=== PATIENT | female | born 1995 | race Caucasian/White ===

== ENCOUNTER 2019-05-12 14:52 | Emergency (ER) | payer BC ==
[2019-05-12 15:08] LABS: ABS Basophils 0.1 10^3/ul (0-0.2); ABS Eosinophils 0.1 10^3/ul (0-0.6); ABS Lymphocytes 1.2 10^3/ul (1.0-4.8); ABS Monocytes 0.5 10^3/ul (0-0.8); ABS Neutrophils 4.3 10^3/ul (1.5-7.7); Eosinophil % 1.8 %; Hematocrit 43 % (35-47); Hemoglobin 14.5 g/dL (12.0-16.0); Lymphocyte % 18.9 %; Mean Corpuscular HGB Conc 34 g/dL (31-36); Mean Corpuscular Hemoglobin 29 pg (27-31); Mean Corpuscular Volume 86 fL (80-97); Mean Platelet Volume 8.7 fL (7.4-10.4); Nucleated Red Blood Cells % 0.1; Platelet Count 216 10^3/uL (150-450); Red Blood Count 5.03 10^6 /uL (3.70-4.87); Red Cell Distribution Width 13 % (10-15); White Blood Count 6.2 10^3/uL (3.5-10.8)
[2019-05-12 15:21] LABS: INR 1.14 (0.82-1.09)
[2019-05-12 15:25] LABS: Albumin 4.4 g/dL (3.2-5.2); Anion Gap 8 mmol/L (2-11); CO2 Carbon Dioxide 23 mmol/L (22-32); Calcium 9.3 mg/dL (8.6-10.3); Chloride 107 mmol/L (101-111); Magnesium 2.1 mg/dL (1.9-2.7); Potassium 3.5 mmol/L (3.5-5.0); Sodium 138 mmol/L (135-145)
[2019-05-12 15:31] LABS: ALT 12 U/L (7-52); AST 17 U/L (13-39); Albumin/Globulin Ratio 1.3 (1-3); Alkaline Phosphatase 64 U/L (34-104); BUN/Creatinine Ratio 11.8 (8-20); Blood Urea Nitrogen 10 mg/dL (6-24); EGFR African American 100.3 (>60); EGFR Non-African American 82.9 (>60); Globulin 3.3 g/dL (2-4); Glucose 102 mg/dL (70-100); Total Protein 7.7 g/dL (6.4-8.9)
--- NOTE | 2019-05-12 15:37 | ED ---
Complex/Multi-Sys Presentation - HPI Summary HPI Summary: 23-year-old female with no significant past medical history presents to the emergency department complaining of upper respiratory symptoms, fever, ear "hotness", nasal congestion, sore throat, lightheadedness and fatigue for 2 weeks. She states she was recently seen by her primary care provider last week who gave her a Z-Randolph as she thought she had pneumonia. Today she is complaining of continued symptoms as well as multiple bouts of diarrhea and chest discomfort. She denies recent recreational drug use, alcohol use, smoking. She denies cough, vomiting, pain with urination, muscle pain, recent tick bite. - History Of Current Complaint Chief Complaint: EDShortnessOfBreath Time Seen by Provider: 05/12/19 15:05 Hx Obtained From: Patient, Family/Slip Cover Cutter - Father in the room Onset/Duration: Gradual Onset, Lasting Weeks Timing: Constant Severity Currently: Moderate Severity Initially: Moderate Associated Signs And Symptoms: Positive: Weakness, Nausea, Diarrhea, Abdominal Pain, Fever. Negative: Cough, Vomiting, Dysuria, Diaphoresis, Immunocompromised , Anticoagulation Therapy - Allergies/Home Medications Allergies/Adverse Reactions: Allergies Allergy/AdvReac Type Severity Reaction Status Date / Time No Known Allergies Allergy Verified 05/12/19 15:00 PMH/Surg Hx/FS Hx/Imm Hx History: Denies: Hx Acute Renal Failure, Hx Chronic Renal Failure, Hx Dialysis Infectious Disease History: No Infectious Disease History: Denies: Traveled Outside the [place] in Last 30 Days Review of Systems Positive: Fever, Fatigue Eyes: Negative Positive: Sore Throat, Ear Ache. Negative: Epistaxis, Nasal Discharge Cardiovascular: Negative Positive: Shortness Of Breath. Negative: Cough Positive: Abdominal Pain, Diarrhea, Nausea. Negative: Vomiting Genitourinary: Negative Musculoskeletal: Negative Skin: Negative Positive: Weakness Psychological: Normal All Other Systems Reviewed And Are Negative: Yes Physical Exam Triage Information Reviewed: Yes Vital Signs On Initial Exam: Initial Vitals Temp Pulse Resp BP Pulse Ox 99.6 F 90 16 133/70 100 05/12/19 14:54 05/12/19 14:54 05/12/19 14:54 05/12/19 14:54 05/12/19 14:54 Vital Signs Reviewed: Yes Appearance: Positive: Well-Appearing, No Pain Distress, Well-Nourished Skin: Positive: Warm Head/Face: Positive: Normal Head/Face Inspection Eyes: Positive: EOMI, WING ENT: Positive: Hearing grossly normal, Pharynx normal, Nasal congestion, TMs normal. Negative: Nasal drainage, TM bulging, TM dull, TM red, Tonsillar swelling, Tonsillar exudate Neck: Positive: Nontender, Enlarged Nodes @ - submandibular and posterior cervical chain lymphadenopathy. Nodes are soft and mobile. Respiratory/Lung Sounds: Positive: Clear to Auscultation, Breath Sounds Present Cardiovascular: Positive: RRR, S1, S2 Abdomen Description: Positive: Nontender, Soft Musculoskeletal: Positive: Strength/ROM Intact Neurological: Positive: Sensory/Motor Intact, Alert, Oriented to Person Place, Time, Normal Gait, Facial Symmetry, Speech Normal Psychiatric: Positive: Normal AVPU Assessment: Alert Procedures - Sedation Patient Received Moderate/Deep Sedation with Procedure: No Diagnostics - Vital Signs Vital Signs Temp Pulse Resp BP Pulse Ox 05/12/19 15:09 86 100 05/12/19 14:54 99.6 F 90 16 133/70 100 - Laboratory Lab Results: Lab Results 05/12/19 05/12/19 05/12/19 Range/Units 15:02 15:02 15:02 WBC 6.2 (3.5-10.8) 10^3/uL RBC 5.03 H (3.70-4.87) 10^6 /uL Hgb 14.5 (12.0-16.0) g/dL Hct 43 (35-47) % MCV 86 (80-97) fL MCH 29 (27-31) pg MCHC 34 (31-36) g/dL RDW 13 (10-15) % Plt Count 216 (150-450) 10^3/uL MPV 8.7 (7.4-10.4) fL Neut % (Auto) 70.1 % Lymph % (Auto) 18.9 % Bowman % (Auto) 8.0 % Eos % (Auto) 1.8 % Baso % (Auto) 1.2 % Absolute Neuts (auto) 4.3 (1.5-7.7) 10^3/ul Absolute Lymphs (auto) 1.2 (1.0-4.8) 10^3/ul Absolute Monos (auto) 0.5 (0-0.8) 10^3/ul Absolute Eos (auto) 0.1 (0-0.6) 10^3/ul Absolute Basos (auto) 0.1 (0-0.2) 10^3/ul Absolute Nucleated RBC 0.0 10^3/ul Nucleated RBC % 0.1 INR (Anticoag Therapy) 1.14 H (0.82-1.09) Sodium 138 (135-145) mmol/L Potassium 3.5 (3.5-5.0) mmol/L Chloride 107 (101-111) mmol/L Carbon Dioxide 23 (22-32) mmol/L Anion Gap 8 (2-11) mmol/L BUN 10 (6-24) mg/dL Creatinine 0.85 (0.51-0.95) mg/dL Est GFR ( Amer) 100.3 (>60) Est GFR (Non-Af Amer) 82.9 (>60) BUN/Creatinine Ratio 11.8 (8-20) Glucose 102 H (70-100) mg/dL Calcium 9.3 (8.6-10.3) mg/dL Magnesium 2.1 (1.9-2.7) mg/dL Total Bilirubin 2.20 H (0.2-1.0) mg/dL AST 17 (13-39) U/L ALT 12 (7-52) U/L Alkaline Phosphatase 64 (34-104) U/L Troponin I 0.00 (<0.03) ng/mL Total Protein 7.7 (6.4-8.9) g/dL Albumin 4.4 (3.2-5.2) g/dL Globulin 3.3 (2-4) g/dL Albumin/Globulin Ratio 1.3 (1-3) TSH Pending Serum Alcohol Pending Monoscreen Pending Result Diagrams: 05/12/19 15:02 05/12/19 15:02 Lab Statement: Any lab studies that have been ordered have been reviewed, and results considered in the medical decision making process. Complex Multi-Symp Course/Dx Course Of Treatment: Patient was evaluated in the emergency department today for general illness 2 weeks. Patient was seen and examined. Vital signs are stable and she is afebrile. An EKG and laboratory studies were ordered to investigate possible pathology. EKG report returned showing normal sinus rhythm at a rate of 84 bpm. There is normal HI and QTc interval. There is no ST elevation or ST depression. There is no signs of Brugada or WPW. Nursing triage note is noted however there are obvious P waves on EKG. Laboratory results returned showing no evidence of leukocytosis or anemia. White blood cell count of 6.2 H&H is 14.5/43 respectively. There are no electrolyte derangements. Monospot negative. There is no evidence of acute pathology causing her symptoms. It is likely a viral illness which will run its course with supportive care. She was told to take Tylenol for fever and decongestions for her nasal congestion. She is told to follow up with her primary care physician for further evaluation and management of her symptoms. Pt also requested referral to ENT for evaluation of her sinus congestion. The patient was told to return to the emergency department immediately if she develops any new or worsening symptoms. Patient agrees with this plan. - Diagnoses Differential Diagnoses/HQI/PQRI: Other - Sinusitis, mononucleosis, anemia due to blood loss. Provider Diagnoses: Congestion of nasal sinus, Fatigue Discharge ED - Sign-Out/Discharge Documenting (check all that apply): Patient Departure - Discharge Plan Condition: Stable Disposition: HOME Patient Education Materials: Postnasal Drip (DC) Referrals: Bethel Miranda MD [Medical Doctor] - Additional Instructions: You were seen in the emergency department today for general illness. Laboratory studies were done and revealed no evidence of acute pathology including mononucleosis or bacterial infection. It is likely you are experiencing a viral illness which will run its course in the next week or 2. Please follow up with your primary care provider for further evaluation and management of your symptoms. If you develop any new or worsening symptoms please return to the emergency Department immediately. Please continue increasing oral hydration with Gatorade to prevent dehydration. you may take Tylenol for fever as needed and Sudafed for congestion. - Billing Disposition and Condition Condition: STABLE Disposition: Home - Attestation Statements Provider Attestation: I was available for consult. This patient was seen by the [facility]. The patient was not presented to, seen by, or examined by me. Faizan Lanier MD
[2019-05-12 15:39] LABS: Alcohol < 10 mg/dL (<10)
--- OUTSIDE RECORDS SUMMARY | 2019-05-12 15:43 | XMS REPORT | Continuity of Care Document ---
:1995 External Reference #:[id number] Author Name GUANACO Blanco Address [address] [place] [address], [address] [place] [address] Problems Description No Information Available Social History Type Date Description Comments Sex Unknown Tobacco Use Start: Unknown Never Smoked Cigarettes Smoking Status Reviewed: 05/01/19 Never Smoked Cigarettes ETOH Use Occasionally consumes alcohol Tobacco Use Start: Unknown Patient has never smoked Allergies, Adverse Reactions, Alerts Active Allergies Reaction Severity Comments Date NKDA 08/21/2015 seasonal allergies 12/07/2018 Medications Active Medications SIG Qnty Indications Ordering Provider Date Allergy Injections Alyson Briseno, 05/02/2019 Weekly [employer] PL[employer]ER Azithromycin 2 tabs by mouth 6tabs J06.9 Alyson Briseno, 05/02/2019 250mg today then 1 by STONE PL[employer]ER Tablets mouth every day for days 2-5 Linzess 1 po qd on empty 30caps K59.00 Alyson Briseno, 11/02/2018 145mcg Capsules stomach, 30 mins STONE PLANER before first meal of day History Medications No Active Medications Unknown 04/25/2019 - 04/25/2019 Citalopram 1 by mouth 30tabs F41.9 Alyson Briseno, 04/25/2019 - Hydrobromide every day STONE PL[employer]ER 05/02/2019 10mg Tablets Immunizations Description No Information Available Vital Signs Date Vital Result Comment 05/02/2019 3:32pm Weight 127.00 lb Height 68 inches 5'8" BP Systolic 120 mmHg BP Diastolic 80 mmHg Body Temperature 99.3 F Heart Rate 72 /min BMI (Body Mass Index) 19.3 kg/m2 04/25/2019 1:31pm Weight 127.00 lb Height 68 inches 5'8" BP Systolic 112 mmHg BP Diastolic 66 mmHg Heart Rate 88 /min BMI (Body Mass Index) 19.3 kg/m2 Results Description No Information Available Procedures Description No Information Available Medical Devices Description No Information Available Encounters Type Date Location Provider Dx Diagnosis Office Visit 05/02/2019 Main Office Alyson Briseno, J30.9 Allergic rhinitis, 3:00p STONE PL[employer]ER unspecified J06.9 Acute upper respiratory infection, unspecified Office Visit 04/25/2019 1:20p Main Office Alyson Briseno J30.9 Allergic rhinitis, STONE PLANER unspecified F41.9 Anxiety disorder, unspecified Office Visit 12/07/2018 10:00a Main Office Jenni Islas, Z00.00 Encntr for general M.DSara adult medical exam w/o abnormal findings L65.9 Nonscarring hair loss, unspecified K58.1 Irritable bowel syndrome with constipation T78.02xA Anaphylactic reaction due to shellfish (crustaceans), init Office Visit 11/02/2018 3:20p Main Office Alyson Prabhakar K59.00 Constipation, Cordon, STONE PLANER unspecified Assessments Date Code Description Provider 05/02/2019 J30.9 Allergic rhinitis, unspecified Alyson Briseno, GUANACO 05/02/2019 J06.9 Acute upper respiratory infection, Alyson Briseno, STONE PL[employer]ER unspecified 04/25/2019 J30.9 Allergic rhinitis, unspecified Alyson Briseno, STONE PLANER 04/25/2019 F41.9 Anxiety disorder, unspecified Alyson Briseno, STONE PLANER 12/07/2018 Z00.00 Encounter for general adult medical Jenni Islas M.D. examination without abno 12/07/2018 L65.9 Nonscarring hair loss, unspecified Jenni Islas M.D. 12/07/2018 K58.1 Irritable bowel syndrome with constipation Jenni Islas M.D. 12/07/2018 T78.02xA Anaphylactic reaction due to shellfish Jenni Islas M.D. (crustaceans), initia 11/02/2018 K59.00 Constipation, unspecified GUANACO Blanco Plan of Treatment Future Appointment(s):06/04/2019 1:20 pm - GUANACO Blanco at Main Stwlzj1112/11/2019 9:30 am - Jenni Islas M.D. at Main Zggcxv3905/02/2019 - GUANACO BlancoJ30.9 Allergic rhinitis, unspecifiedComments:Continue following with SzhmmdnlpX10.9 Acute upper respiratory infection, unspecifiedNew Medication:Azithromycin 250 mg - 2 tabs by mouth today then 1 by mouth every day for days 2-5Comments:Tylenol as needed for fever. Zpak sent to pharmacy if no improvement within the next few days.AllFollow up:keep scheduled appt Functional Status Description No Information Available Mental Status Description No Information Available Referrals Refer to Reason for Referral Status Appt Date Emilia Bermudez Scheduled 01/15/2019 Joe Phillips D.O. Closed 12/20/[address] [place] [address] [address] [place] [address] [phone]
--- OUTSIDE RECORDS SUMMARY | 2019-05-12 15:43 | XMS REPORT | Continuity of Care Document ---
:1995 External Reference #:[id number] Author Name GUANACO Blanco Address [address] [place] [address], [address] [place] [address] Problems Description No Information Available Social History Type Date Description Comments Sex Unknown Tobacco Use Start: Unknown Never Smoked Cigarettes Smoking Status Reviewed: 04/24/19 Never Smoked Cigarettes ETOH Use Occasionally consumes alcohol Tobacco Use Start: Unknown Patient has never smoked Allergies, Adverse Reactions, Alerts Active Allergies Reaction Severity Comments Date NKDA 08/21/2015 seasonal allergies 12/07/2018 Medications Active Medications SIG Qnty Indications Ordering Provider Date Citalopram 1 by mouth every 30tabs F41.9 Alyson Briseno, 04/25/2019 Hydrobromide day [employer] WHE[employer] REPAIRER 10mg Tablets Linzess 1 po qd on empty 30caps K59.00 Alyson Briseno, 11/02/2018 145mcg Capsules stomach, 30 mins [employer] WHEEL REPAIRER before first meal of day History Medications No Active Medications Unknown 04/25/2019 - 04/25/2019 Immunizations Description No Information Available Vital Signs Date Vital Result Comment 04/25/2019 1:31pm Weight 127.00 lb Height 68 inches 5'8" BP Systolic 112 mmHg BP Diastolic 66 mmHg Heart Rate 88 /min BMI (Body Mass Index) 19.3 kg/m2 12/07/2018 9:57am Weight 137.00 lb Height 68 inches 5'8" BP Systolic 110 mmHg BP Diastolic 80 mmHg Heart Rate 100 /min Respiratory Rate 18 /min BMI (Body Mass Index) 20.8 kg/m2 Results Description No Information Available Procedures Description No Information Available Medical Devices Description No Information Available Encounters Type Date Location Provider Dx Diagnosis Office Visit 04/25/2019 Main Office Alyson Briseno, J30.9 Allergic rhinitis, 1:20p [employer] REPAIRER unspecified F41.9 Anxiety disorder, unspecified Office Visit 12/07/2018 10:00a Main Office Jenni Islas, Z00.00 Encntr for general M.DSara adult medical exam w/o abnormal findings L65.9 Nonscarring hair loss, unspecified K58.1 Irritable bowel syndrome with constipation T78.02xA Anaphylactic reaction due to shellfish (crustaceans), init Office Visit 11/02/2018 3:20p Main Office Alyson Prabhakar K59.00 Constipation, GUANACO Briseno unspecified Assessments Date Code Description Provider 04/25/2019 J30.9 Allergic rhinitis, unspecified GUANACO Blanco 04/25/2019 F41.9 Anxiety disorder, unspecified GUANACO Blanco 12/07/2018 Z00.00 Encounter for general adult medical Jenni Islas M.D. examination without abno 12/07/2018 L65.9 Nonscarring hair loss, unspecified Jenni Islas M.D. 12/07/2018 K58.1 Irritable bowel syndrome with constipation Jenni Islas M.D. 12/07/2018 T78.02xA Anaphylactic reaction due to shellfish Jenni Islas M.D. (crustaceans), initia 11/02/2018 K59.00 Constipation, unspecified GUANACO Blanco Plan of Treatment Future Appointment(s):06/04/2019 1:20 pm - GUANACO Blanco at Main Pgwcdz5712/11/2019 9:30 am - Jenni Islas M.D. at Main Tivrkh4104/25/2019 - GUANACO BlancoJ30.9 Allergic rhinitis, unspecifiedComments:Follow-up with [employer].F41.9 Anxiety disorder, unspecifiedNew Medication:Citalopram Hydrobromide 10 mg - 1 by mouth every dayComments:Start citalopram 10 mg once daily. Contact office if no improvement of symptoms.AllFollow up:6-8 week f/u Functional Status Description No Information Available Mental Status Description No Information Available Referrals Refer to Reason for Referral Status Appt Date Emilia Bermudez Scheduled 01/15/2019 Joe Phillips D.O. Closed 12/20/[address] [place] [address] [place] [address] [phone]
[2019-05-12 16:27] VITALS: BP 125/70
== END 2019-05-12 16:18 | disposition home or self-care (01) ==
LOC: ED 14:52
DX: R09.81 Nasal congestion (principal); R53.83 Other fatigue
CPT/HCPCS: 36415; 80053; 80320; 83735; 84443; 84484; 85025; 85610; 86308; 93005; 99282; G0480